=== PATIENT | female | born 1990 | race Caucasian/White ===

== ENCOUNTER → 2017-09-07 19:02 | Outpatient (CLI) | payer OTHER, SELFPAY ==
[2017-09-07 22:43] LABS: Chlamydia Trachomatis by PCR Negative (Negative); Neisserai gonorrhoeae by PCR Negative (Negative); Probe Check PASS; Sample Adequacy Control PASS; Specimen Processing Control PASS
[2017-09-13 15:54] LABS: HPV Reflexed? NOT INDICATED
== END ==
PROVIDERS: Family Provider Physician Assistant; PCP Physician Assistant; Visit Provider Nurse Practitioner Women's Health
DX: Z12.4 Encounter for screening for malignant neoplasm of cervix (principal); Z11.3 Encounter for screening for infections with a predominantly sexual mode of transmission
CPT/HCPCS: 87491; 87591; 88175; G0145

== ENCOUNTER → 2017-10-26 15:51 | Outpatient (CLI) | payer OTHER, SELFPAY ==
[2017-10-26 19:30] LABS: Chlamydia Trachomatis by PCR Negative (Negative); Neisserai gonorrhoeae by PCR Negative (Negative); Probe Check PASS; Sample Adequacy Control PASS; Specimen Processing Control PASS
== END ==
PROVIDERS: Family Provider Physician Assistant; PCP Physician Assistant; Visit Provider Nurse Practitioner Women's Health
DX: Z11.3 Encounter for screening for infections with a predominantly sexual mode of transmission (principal); N89.8 Other specified noninflammatory disorders of vagina
CPT/HCPCS: 87070; 87077; 87205; 87491; 87591

== ENCOUNTER 2017-12-14 09:30 | Outpatient (RCR) | payer OTHER, SELFPAY | END 2017-12-21 23:59 | LOC: NS 09:30 | PROVIDERS: Family Provider Physician Assistant; PCP Physician Assistant; Visit Provider Family Medicine | DX: E66.9 Obesity, unspecified (principal); E66.3 Overweight; Z68.36 Body mass index [BMI] 36.0-36.9, adult; Z71.3 Dietary counseling and surveillance | CPT/HCPCS: 97802; 97803 ==

== ENCOUNTER 2017-12-22 10:00 | Outpatient (RCR) | payer OTHER, SELFPAY ==
--- NOTE | 2017-08-26 17:16 | HP.PTEVAL ---
Patient's Visit Information BROOKLYN LOREDO is a 26 year old F referred to Physical Therapy by JOSH Cisneros with a diagnosis of . Date of Evaluation: 08/26/17 Physical Therapist: Tayler Christian Visit Plan Frequency: 2-3x /Week Duration: 4-6 Weeks Plan: FURTHER ASSESSMENT WITH PHYSICIAN ORDER FOR PT. POSTURE CORRECTION/STRENGTHENING, INSTRUCTION IN APPROPRIATE BODY MECHANICS AND ACTIVITY MODIFICATIONS. THAIS UE ROM, STRETCHING AND STRENGTHENING. HEP INSTRUCTION. CONSIDER AQUATIC THERAPY. - Subjective Subjective: Work/Leisure: WORKS AT THE [employer] AT THE [facility] ABOUT 40 HOURS A WEEK. STANDING ALL DAY. 20 - 30 MIN TRAVEL TIME TO AND FROM WORK. OCCASSIONALLY DOES SOME BENDING, LIFTING AND TWISITNG. SOMETIMES DRIVES A BIG SHUTTLE. REPORTS SHE HAS NOT BEEN LIFTING AT WORK THIS WEEK. Disability: NO. Present symptoms: CONSTANT NECK PAIN, THAIS SHOULDER PAIN AND DOWN BACK A LITTLE BIT. INTERMITTENT THAIS UE PAIN, NUMBESS AND TINGLING TO FINGERS. INTERMITTENT LOW BACK PAIN. INTERMITTENT THAIS LE PAIN, NUMBNESS AND TINLGING TO TOES. Present since: HIGH SCHOOL. Pain Scale: Worst - 8/10 Least - 3/10 IN NECK, SHOULDERS AND UPPER BACK. Commenced as a result of: DANCING AND BREAST GROWTH. Symptoms at onset: ARMS AND LEGS GOING NUMB. Worse: ANYTHING PHYSICAL, EXERCISING, TAKING WALK, LIFTING, CLEANING, SWIMMING, YOGA, LYING DOWN, LOOKING DOWN, RIDING A BIKE. Better: HEAT, SITTING UP AND NOT MOVING, IBUPROFEN, MUSCLE RELAXER, TORODOL SHOT. Disturbed sleep: YES. Previous history/Previous treatment: PHYSICAL THERAPY 2010 IN [facility] - HELPED A LITTLE BIT BUT IT WAS ALSO THE SAME TIME SHE STOPPED DANCING. NO CHIROPRACTOR. NO CLARISSE'S. NO NECK OR BACK SURGERY. Dizziness: OCCASSIONALLY. Tinnitis: NO. Nausea: NO. Difficulty Swollowing: NO. Gait: NO ASSISTIVE DEVICES. NO FALLS. Accidents: NO. Unexplained weight loss: NO. Imaging: NO SPINE X-RAYS. PATIENT STATES SHE HAD A LOT OF TESTS DONE IN 2005 WHEN SHE PASSED OUT DURING A SPINAL TAP FOR PRESSURE ON THE BRAIN RESULTING PRESSURE ON HER OPTIC NERVES AND SHE PASSED OUT AND HAD A SEIZURE. NO SEIZURES SINCE AND NOT ON SWIZURE MEDICATION. PMH/Recent major surgery: ALLERGIES, ANXIETY AND DEPRESSION. HAS BEEN ON MEDICINE FOR ANXIETY AND DEPRESSION SINCE ABOUT AGE 16. OTHER: PATIENT REPORTS THE DOCTOR GAVE HER AN ORDER FOR A NECK X-RAY AND TOLD HER TO HAVE THE X-RAY IF PHYSICAL THERAPY DOESN'T HELP. PATIENT REPORTS THAT ALL OF A SUDDEN SATUREDAY ABOUT 6 AM SHE WOKE UP AND COULDN'T MOVE HER NECK OR ARMS. SHE STAYED IN BED ALL DAY AND IT DIDN'T GET BETTER. SHE STATES IT HAPPENED FOR NO APPARENT REASON AND SHE JUST WOKE UP THAT WAY ON TUESDAY. SHE CALLED OFF WORK TUESDAY AND [facility]. STATES HER MOM HAD TO HELP HER OUT OF BED TO GO TO THE [facility]. REPORTS THEY TOLD HER TO GET A NECK BRACE AND USE MH ON HER NECK AND SEE HER DOCTOR TUESDAY. SHE WENT TO WORK TUESDAY THEN SAW HER NURSE PRACTITIONER Ivania JOSEPH AFTER WORK. SHE REPORTS SHE TOLD HER NOT TO WEAR THE NECK BRACE AND TO TO TRY PT. SHE ALSO GAVE HER A TORODOL SHOT AND MUSCLE RELAXER PRESCRIPTION. PATIENT REPORTS THAT SHE IS SLOWLY GETTING BETTER AND THE TORODOL SHOT HELPED A LOT. - Objective I PROCEEDED CAREFULLY WITH ALL TESTING TODAY AND PATIENT AGREED TO ALL TESTING. Sitting Posture/Standing Posture: POOR. Active Correction of posture: BETTER. Other Observations: INDEP GAIT AND TRANSFERS. Motor deficit: THAIS UE STRENGTH AT LEAST 4/5 WITH MMT'ING BUT PATIENT C/O ARMS GETTING A WEAK FEELING WITH TESTING. Sensory deficit: THAIS UE LIGHT TOUCH SENSATION IS INTACT AND SYMMETRICAL. ROM deficit: THAIS UE ROM WFL. Reflexes: THAIS UE DTR'S 2/2. Dural Signs: NT. Cervical Mvmt Loss: TESTING WITHIN PAINFREE ROM ONLY. Flex: MOD. Pro: MOD. Ext: MOD. Ret: MOD. RSB: MOD. LSB: MOD. R Rot: MOD. L Rot: MOD. PATIENT REPORTS THAT THIS NECK MVMT IS A LOT BETTER THAN IT WAS AND SHE CAN AVOID INCREASING THE PAIN IF SHE DOESN'T GO TOO FAR. Postural strength: FAIR. OTHER: THERE IS A BUMP OF WHAT APPEARS TO BE SWELLING ON THE LOWER CERVICAL SPINE. PATIENT REPORTS IN IS SOMETIMES BIGGER. - Goals Goal 1:: DECREASE C/O NECK, UPPER BACK AND THAIS UE SX'S. Goal Time Frame: 4-6 Weeks Goal 2:: IMPROVE LIFTING, EXERCISE, READING, SLEEP, WORK, DRIVING AND OTHER RECREATIONAL FUNCTION Goal Time Frame: 4-6 Weeks Goal 3:: INSTRUCT IN PROPHYLAXIS Goal Time Frame: 4-6 Weeks - Rehabilitation Potential Physical Therapy Diagnosis: DECREASED NECK PAINFREE ROM ALL PLANES. DECREASED PAINFREE THAIS UE STRENGTH. Rehabilitation Potential: Fair - Anticipated Interventions Patient/Client Instruction: Educate patient on: Condition, Plan of Care, Risk Factors, Benefits of Fitness Program For the Purpose of:: To improve self management Therapeutic Exercise to Include: Strength training, Body mechanics, Postural training, In an aquatic setting, Active ROM, Scapular Strength/Stabilization For the Purpose of:: To decrease pain, To decrease swelling/inflammation, To increase ROM, To improve muscle performance and motor function, To increase tolerance to activity/condition/position, To improve ability of physical actions for home/community/work/leisure Thank you for the opportunity to evaluate your patient. For Medicare and Medicare HMO plans, please review the plan of care and approve it. It will need to be FAXED BACK to us at [phone] for Medicare purposes. Please let me know if there are questions or concerns regarding this plan of care. Physician Signature: Date:
--- NOTE | 2017-10-05 13:40 | HP.PTREVAL_ITS ---
JOSH Cisneros, It has been my pleasure to treat BROOKLYN LOREDO over the last 10 visits for NECK PAIN. Please see the progress note below for an update on the physical therapy plan of care! Subjective: I CAN MOVE A LOT EASIER JUST GOING OUT THINGS DAY TO DAY BUT IT CAN STILL AT TIMES BE PRETTY PAINFULL BUT NOT NEAR OFTEN IT USE TO BE. PATIENT REPORTS SHE THINKS STRESS IS A BIG FACTOR WITH CHANGING JOBS AND ANTICIPATION OF GOING BACK TO SCHOOL. SHE REPORTS HER PAIN COMES AND GOES NOW. UP TO 5/10 PAIN AT ITS WORST. PATIENT REPORTS SHE IS GOING TO CONSIDER BREAST REDUCTION. PATIENT REPORTS SHE FEELS LIKE SHE IS GETTING THE HANG OF THE EX'S BETTER BUT NEEDS MORE HELP. PATIENT REPORTS SHE HAS ACCESS TO [employer] AND [employer] AND THEY BOTH HAVE POOLS. SHE REPORTS SHE CAN START SOME INDEP WATER EX IN THE NEXT WEEK OR SO. Objective/Function: IMPROVING. PATIENT IS REPORTING INCREASED FUNCTION AND DECREASED PAIN. UPON EXAM, SHE IS MUCH MORE TOLERANT OF TESTING. THAIS UE ROM IS WFL WITH MINIMAL GUARDING. THAIS UE STRENGTH IS 5/5 WITH MMT'ING. CERVICAL MVMT LOSS: FLEX - NIL, PRO - NIL, EXT - MIN, RET - MIN, THAIS SB - NIL, THAIS ROT - MIN. MUCH IMPROVED POSTURE CONTROL IN CLINIC WITH PATIENT CORRECTING WITHOUT CUEING. WOULD RECOMMEND CONTINUED PT PER ORIG POC WORKING TOWARD SAME GOALS WITH PROGRESSION TOLERATED AND TAPERING OFF OF THERAPY. Plan Plan: CONT AQUATIC THERAPY DECREASING TO 2X'S A WEEK X 2 WEEKS THEN 1X/WEEK X 4 WEEKS WHILE PATIENT TRANSITIONS TO INDEP EX AT POOL OF HER CHOICE. Goals Goal 1:: DECREASE C/O NECK, UPPER BACK AND THAIS UE SX'S. Goal Time Frame: 4-6 Weeks Goal Progress: Progressing Goal 2:: IMPROVE LIFTING, EXERCISE, READING, SLEEP, WORK, DRIVING AND OTHER RECREATIONAL FUNCTION Goal Time Frame: 4-6 Weeks Goal Progress: Progressing Goal 3:: INSTRUCT IN PROPHYLAXIS Goal Time Frame: 4-6 Weeks Goal Progress: Progressing Anticipated Interventions Patient/Client Instruction: Educate patient on: Condition, Plan of Care, Risk Factors, Benefits of Fitness Program For the Purpose of:: To improve self management Therapeutic Exercise to Include: Strength training, Body mechanics, Postural training, In an aquatic setting, Active ROM, Scapular Strength/Stabilization For the Purpose of:: To decrease pain, To decrease swelling/inflammation, To increase ROM, To improve muscle performance and motor function, To increase tolerance to activity/condition/position, To improve ability of physical actions for home/community/work/leisure Please do not hesitate to contact me at [phone] by phone or Fax: if you have questions or concerns regarding this new plan of care! Sincerely, Tayler Grover
--- NOTE | 2017-12-28 11:33 | HP.PTDCSUM_ITS ---
HP - PT D/C Summary It has been my pleasure to treat BROOKLYN LOREDO under orders from JOSH Cisneros, for the diagnosis of NECK PAIN for a total of 22 visit(s). Discharge Date: 12/28/17 Please see the following information for a summary of their discharge status. - Subjective Subjective: PATIENT REPORTS SHE IS COMING 2-3 TIMES A WEEK ON [facility] HER POOL PROGRAM THROUGHT THE WHY WEIGHT PROGRAM. SHE STATES IT IS GOING GOOD. PATIENT REPORTS SHE HASN'T HAD MUCH OF ANY PAIN IN HER SPINE FOR ABOUT A WEEK NOW BECAUSE SHE MODIFIES HER ACTIVITIES AT THE FIRST SIGN OF PAIN. BREAST REDUCTION SURGERY PENDING January. SHE IS ALSO EXERCISING INDEP'LY ON LAND NOW X ABOUT 8 SESSIONS WITH PROGRAM SET UP WITH [employer]. PATIENT REPORTS HER ABILITY TO DO EVERY DAY TASKS LIKE CLEANING, BENDING AND BEING ACTIVE IN EXERCISE HAS IMPROVED BEYOND HER PRIOR LEVEL OF F UNCTION. SHE REPORTS SHE HAS NOT BEEN ABLE TO BE THIS ACTIVE THIS PAINFREE FOR A FEW YEARS. SHE REPORTS SHE IS MOTIVATED TO GET EVEN STRONGER. - Pain NECK Pain Intensity (Out of 10): 0 UPPER BACK Pain Intensity (Out of 10): 0 Lumbar Spine Pain Intensity (Out of 10): 0 - Overall Improvement % Improvement: 90 - Objective Objective/Function: ALL GOALS MET. PATIENT IS REPORTING INCREASED FUNCTION AND VERY MANAGEABLE OR ALMOST NO PAIN NOW. UPON EXAM, SHE DENIES PAIN WITH ALL TESTING TODAY. THAIS UE AND LE ROM IS WFL WITHOUT GUARDING. THAIS UE AND LE STRENGTH IS 5/5 WITH MMT'ING. CERVICAL MVMT LOSS: FLEX - NIL, PRO - NIL, EXT - NIL, RET - NIL, THAIS SB - NIL, THAIS ROT - NIL. LUMBAR ROM AND THORACIC ROM IS FULL AND PAINFREE WITH TESTING TODAY. - Goals Goal 1:: DECREASE C/O NECK, UPPER BACK AND THAIS UE SX'S. Goal Progress: Goal Met Goal 2:: IMPROVE LIFTING, EXERCISE, READING, SLEEP, WORK, DRIVING AND OTHER RECREATIONAL FUNCTION Goal Progress: Goal Met Goal 3:: INSTRUCT IN PROPHYLAXIS Goal Progress: Goal Met - Plan Plan: D/C TO INDEP EX PROGRAMS IN THE POOL AND ON LAND. PATIENT IS AGREEABLE. - D/C Information If there are questions or concerns regarding this patient's physical therapy, please feel free to call me at [phone]. Thank you for the referral of this patient. Sincerely, Tayler Grover
== END 2017-12-22 19:00 | disposition home or self-care (01) ==
LOC: PT 10:00
PROVIDERS: Family Provider Physician Assistant; PCP Physician Assistant; Visit Provider Physician Assistant
DX: M54.2 Cervicalgia (principal)
CPT/HCPCS: 97113; 97162; 97164; 97530

== ENCOUNTER 2018-01-03 11:24 | Outpatient (RCR) | payer OTHER, SELFPAY | END 2018-01-20 23:59 | LOC: NS 11:24 | PROVIDERS: Family Provider Physician Assistant; PCP Physician Assistant; Visit Provider Family Medicine | DX: E66.9 Obesity, unspecified (principal); E66.3 Overweight; Z68.36 Body mass index [BMI] 36.0-36.9, adult; Z71.3 Dietary counseling and surveillance | CPT/HCPCS: 97803 ==

== ENCOUNTER 2018-01-24 05:55 | Day surgery (SDC) | payer OTHER, SELFPAY ==
[2018-01-18 11:28] VITALS: BMI 35.3
[2018-01-24] VITALS (11 sets, daily range): BP systolic 109–135; BP diastolic 57–98; PULSE 101–122; RESP 14–16; TEMP 36.3–37.1; O2SAT 93–100; BMI 35.2
--- NOTE | 2018-01-24 | BR_PTH ---
PATIENT: BROOKLYN LOREDO LOC: [facility] U#:[id number] AGE/SX: 27/F ROOM: RE01/24/[address]: Dr. Bob Ivan MD : 1990 BED: DIS: 01/25/2018 SPEC #: [id number] RECD: 01/24/18 14:02 STATUS: TAMIKA YANCY #: [id number] TI: 01/24/18 00:[address]: Bob Ivan DEPT: SURGICAL PATHOLOGY RECD BY: Eddi Mojica ENTERED: 01/24/18 14:02 SP TYPE: MAMOPLASTY OTHR DR: JOSH Cisneros Tissues: A - Right breast, NOS B - Left breast, NOS Procedures: Surgery Specimen Level IV HEADER OPERATION: Bilateral breast reduction, mammoplasty PRE-OP DIAGNOSIS: Breast hypertrophy, chronic cervical pain, chronic thoracic back pain, pain in shoulder, intertrigo, family history breast cancer TISSUE SUBMITTED: A - Right breast tissue, B - Left breast tissue MICROSCOPIC DIAGNOSIS A. Right breast tissue, breast reduction mammoplasty: Benign breast tissue (1282 gm). Skin, no pathologic diagnosis. B. Left breast tissue, breast reduction mammoplasty: Benign breast tissue (1157 gm). Skin, no pathologic diagnosis. CESILIA:deja 01/26/18 MICROSCOPIC DESCRIPTION Slides are reviewed. GROSS DESCRIPTION A - Received in fixative is one container labeled with the patient's name and designated right breast tissue. The specimen consists of multiple fragments of yellow fibroadipose tissue with a few of the pieces showing lemus-white skin weighing in aggregate 1282 gm and measuring in aggregate 30 x 30 x 9 cm. Sections reveal mostly lemus-yellow adipose cut surfaces mixed with focal lemus-white fibrous areas. Hat Trimmer sections are submitted in six cassettes. Cassette 1 also contains the skin piece. B - Received in fixative is one container labeled with the patient's name and designated left breast tissue. The specimen consists of multiple fragments of yellow fibroadipose tissue with a few of the pieces showing lemus-white skin weighing in aggregate 1157 gm and measuring in aggregate 30 x 24 x 9 cm. Sections reveal mostly lemus-yellow adipose cut surfaces mixed with focal lemus-white fibrous areas. Hat Trimmer sections are submitted in six cassettes. Cassette 1 also contains the skin piece. / CESILIA:deja 01/25/18 TC:5 CPT: 92660 x2
[2018-01-24 06:38] LABS: Internal QC Validated? YES +Cl - CLEAR BKGD; Pregnancy, Urine Negative Negative
[2018-01-24] MEDS: Cefazolin 2 GM in 0.9% Normal Saline 100 ML IV (07:59)
[2018-01-24] MEDS: Methylene Blue 1% 100 MG/10 ML VIAL (08:30)
--- NOTE | 2018-01-24 14:27 | PCM.IMDPSTOP ---
Immediate Post-Op Note Date of Procedure: 01/24/18 Primary Surgeon/Physician: Bob Ivan spring production supervisor: Radha Thacker. Pre-Operative Diagnosis: 1. Bilateral macromastia. 2. Neck pain. 3. Thoracic back pain. 4. Bilateral shoulder pain from shoulder grooving from the weight of the breasts on her bra straps. 5. Inframammary intertrigo. 6. Family history of breast cancer. Post-Operative Diagnosis: Same. Surgery/Procedure Performed:: Bilateral breast reduction mammaplasty. Description of Surgical Findings:: 27 year old woman presents with complaints of bilateral macromastia as well as associated painful symptomatology of neck pain, thoracic back pain, bilateral shoulder pain from shoulder grooving from the weight of her breasts on her bra straps, and inframammary intertrigo for which she uses powder for relief. She denies any trauma to her breasts. Denies any nipple discharge. She has not seen a chiropractor for her back pain. She has undergone Physical Therapy treatments without much relief. She has not had a mammogram. She does have a family history of breast cancer. We have received medical approval for the breast reduction surgery. Today the patient underwent bilateral breast reduction mammaplasty. Tissue removed from the right breast - 1252 grams. Tissue removed from the left breast - 1120 grams. IV Fluids - 3300 ml. Urine Output - 250 ml. I used Hernan absorbable hemostat, (I used 4 vials, 2 in each breast). Reference Number - [id number]. Lot Number - [id number]. Expiration - September 17, 2022. Estimated Blood Loss: 150 ml. Specimen's removed: 1. Right breast tissue to Pathology. 2. Left breast tissue to Pathology. Drains: Bora x2. Type of Anesthesia:: General - Admit VTE Documentation VTE Present on Admission: No VTE Mechan Device Prophylaxis: SCD's VTE Pharm Prophylaxis ordered?: Yes
--- NOTE | 2018-01-24 14:32 | OP.PN_ITS ---
Immediate Post-Op Note Date of Procedure: 01/24/18 Primary Surgeon/Physician: Bob Ivan toe stripper: Radha Thacker. Pre-Operative Diagnosis: 1. Bilateral macromastia. 2. Neck pain. 3. Thoracic back pain. 4. Bilateral shoulder pain from shoulder grooving from the weight of the breasts on her bra straps. 5. Inframammary intertrigo. 6. Family history of breast cancer. Post-Operative Diagnosis: Same. Surgery/Procedure Performed:: Bilateral breast reduction mammaplasty. Description of Surgical Findings:: 27 year old woman presents with complaints of bilateral macromastia as well as associated painful symptomatology of neck pain, thoracic back pain, bilateral shoulder pain from shoulder grooving from the weight of her breasts on her bra straps, and inframammary intertrigo for which she uses powder for relief. She denies any trauma to her breasts. Denies any nipple discharge. She has not seen a chiropractor for her back pain. She has undergone Physical Therapy treatments without much relief. She has not had a mammogram. She does have a family history of breast cancer. We have received medical approval for the breast reduction surgery. Today the patient underwent bilateral breast reduction mammaplasty. Tissue removed from the right breast - 1252 grams. Tissue removed from the left breast - 1120 grams. IV Fluids - 3300 ml. Urine Output - 250 ml. I used Hernan absorbable hemostat, (I used 4 vials, 2 in each breast). Reference Number - [id number]. Lot Number - [id number]. Expiration - September 17, 2022. Estimated Blood Loss: 150 ml. Specimen's removed: 1. Right breast tissue to Pathology. 2. Left breast tissue to Pathology. Drains: Bora x2. Type of Anesthesia:: General - Admit VTE Documentation VTE Present on Admission: No VTE Mechan Device Prophylaxis: SCD's VTE Pharm Prophylaxis ordered?: Yes
[2018-01-24] MEDS: oxyCODONE 5 MG Tablet 10 MG PO (18:44)
[2018-01-24] MEDS: Cefazolin 1 GM/50 ML BAG IV (21:27)
[2018-01-24] MEDS: Docusate Sodium 100 MG Capsule PO (21:27)
[2018-01-25] MEDS: Lactated Ringers 1,000 ML 60 ML IV (00:37)
[2018-01-25 03:01] VITALS: BP 112/66; PULSE 99; RESP 16; TEMP 36.9; O2SAT 95
[2018-01-25] MEDS: Cefazolin 1 GM/50 ML BAG IV (05:47)
[2018-01-25] MEDS: oxyCODONE 5 MG Tablet 10 MG PO ×2 (05:47→14:40)
[2018-01-25] MEDS: Enoxaparin 40 MG/0.4 ML Syringe SC (05:47)
[2018-01-25 06:04] LABS: Hematocrit 34.4 % (37-47); Hemoglobin 10.9 g/dl (12.0-15.0); Mean Corp Hgb Conc 31.7 g/gl (32-36); Mean Corpuscular Hgb 29.4 pg (27.0-32.0); Mean Corpuscular Volume 92.7 fL (81-99); Mean Platelet Vol. 9.8 fl (6.2-12.0); Platelet Count 288 K/mm3 (150-450); RBC Distribution Width CV 13.1 % (11.6-14.6); RBC Distribution Width SD 42.8 fl (35.1-43.9); Red Blood Count 3.71 M/mm3 (4.2-5.4); White Blood Count 10.9 K/mm3 (4.4-11.0)
[2018-01-25 06:11] LABS: Scan Indicated on CBC? Y/N NO
[2018-01-25 08:51] VITALS: BP 117/67; PULSE 96; RESP 18; TEMP 36.9; O2SAT 95
[2018-01-25] MEDS: Docusate Sodium 100 MG Capsule PO (08:53)
--- NOTE | 2018-01-25 14:06 | OP.PCM_ITS ---
Report of Operation Date of Procedure: 01/24/18 Pre-Operative Diagnosis: 1. Bilateral macromastia. 2. Neck pain. 3. T horacic back pain. 4. Bilateral shoulder pain from shoulder grooving from the weight of the breasts on her bra straps. 5. Inframammary intertrigo. 6. Family history of breast cancer. Post-Operative Diagnosis: Same. Surgery/Procedure Performed:: Bilateral breast reduction mammaplasty. Description of Surgical Findings:: 27 year old woman presents with complaints of bilateral macromastia as well as associated painful symptomatology of neck pain, thoracic back pain, bilateral shoulder pain from shoulder grooving from the weight of her breasts on her bra straps, and inframammary intertrigo for which she uses powder for relief. She denies any trauma to her breasts. Denies any nipple discharge. She has not seen a chiropractor for her back pain. She has undergone Physical Therapy treatments without much relief. She has not had a mammogram. She does have a family history of breast cancer. We have received medical approval for the breast reduction surgery. Patient was informed of the risks and complications of the procedure including alternatives to surgery. These were discussed with the patient personally. Patient voices understanding and wishes to proceed. Some of the risks and complications were included in a form from the [employer]. Tissue removed from the right breast - 1252 grams. Tissue removed from the left breast - 1120 grams. IV Fluids - 3300 ml. Urine Output - 250 ml. I used Hernan absorbable hemostat, (I used 4 vials, 2 in each breast). Reference Number - [id number]. Lot Number - [id number]. Expiration - September 17, 2022. social scientist: Radha Thacker. Type of Anesthesia:: General Specimen's removed: 1. Right breast tissue to Pathology. 2. Left breast tissue to Pathology. Drains: Bora x2. Estimated Blood Loss (mL): 150 ml. Fluids Replaced: 3550 ml (IV Fluids 3300 ml, Urine Output 250 ml). Description of Procedure: The patient was taken to the operating room and in the sitting position, preoperative markings were made. The sternum midline was marked down to the umbilicus. The inframammary folds were marked bilaterally. The midclavicular line was then marked down to the nipple, then from the nipple to the inframammary fold. The inframammary fold was then superimposed on the midclavicular line and I made a point 1 cm below that to be the new position of the nipple-areolar complex. 7 cm lines were then drawn divergent from that point to encompass the nipple-areolar complex. The distance between the divergent lines was 9 cm. The patient was then placed in the supine position and placed under general anesthesia and her breasts were prepped and draped in usual fashion. SCDs were placed for DVT prophylaxis. Perioperative antibiotics were given intravenously. A Hendrickson catheter was also placed. I then tattooed the preoperative markings with methylene blue and 25-gauge needle. I also tattooed the 12 o'clock position of the nipple-areolar complex to help with positioning of the nipple-areolar complex when it is brought through the keyhole incision at the end of the procedure to minimize kinking and twisting of the central breast mound pedicle. I then em straight lines down from the lines drawn divergent around the nipple-areolar complex down to the inframammary fold. The width of the pedicle is 9 cm. I then used a 42 mm circular template for a new size of the nipple-areolar complex. The central markings were infiltrated with Xylocaine and epinephrine. The central skin was then deepithelialized. I started on the right side first and then went to the left side. I then mobilized medial and lateral breast flaps at the level of Nelly's fascia down to within a centimeter of the chest wall. This was met in the midline of the breast with dissection at the level of Nelly's fascia down to within a centimeter of the chest wall. Once the central breast mound pedicle was from the skin envelope, the reduction was then begun. Most of the tissue was removed from the superior aspect of the breast and the lateral aspect of the breast. I then sutured the leading edge of the medial and lateral breast flaps to the midline of the inframammary fold. The vertical incision was approximated using surgical clips. The excess tissue from the medial and lateral breast flaps were excised and the horizontal incision was approximated using surgical clips. The patient was then placed in a sitting position. Using a vertical limb length of 5 cm, I em the new position of the new nipple-areolar complexes on both breasts. They were in good position on the central aspect of the breast mound. Good symmetry was noted between the left breast and the right breast. The patient was then placed back in the supine position and the surgical clips were removed. The breast wounds were then irrigated with saline. Hemostasis was obtained using electrocautery. The tissue removed from the left breast was 1120 grams. The tissue removed from the right breast was 1252 grams. The tissue that was removed from the breasts was sent to Pathology for analysis to rule out carcinoma. After hemostasis was obtained using electrocautery, I then sprayed Hernan absorbable hemostat into both breast wounds. I used 2 vials for each side. I then placed a size 15 Bora drain into each breast wound to be brought through the lateral aspect of the horizontal incision. I then closed the breast wounds by first approximating the leading edge of the medial and lateral breast flaps to the midline inframammary fold with 2-0 Vicryl suture. The deep dermis and subcutaneous tissue of the vertical incision and the horizontal incisions were approximated using 3-0 Monocryl interrupted sutures. The horizontal incision was then approximated using 4-0 V-Loc unidirectional barbed running subcuticular suture. I also placed a few 4-0 Prolene vertical mattress interrupted sutures at the level of the Tzone. The vertical incision was then closed on the skin with 4-0 Prolene interrupted sutures. With a vertical limb length of 5 cm, I em a circular incision where the new nipple-areolar complex would be brought through the keyhole incision. Incisions were made and the nipple areolar complex was brought through the keyhole incision. The 12 o'clock position of the nipple-areolar complex was lined up with the 12 o'clock position of the breast skin. The nipple-areolar complex was secured to the breast skin using 3-0 Monocryl interrupted sutures for deep dermis and subcutaneous tissue. The skin was approximated using 4-0 Prolene simple interrupted sutures. This was then covered with Histoacryl skin tissue adhesive. I sutured the drain to the skin using 3-0 nylon suture. At the end of procedure, the breasts were soft with no evidence of vascular compromise. No evidence of hematomas were noted. The nipples were viable. I then dressed the breasts with a Kerlix gauze and a surgical bra. The patient tolerated the procedure well and will be sent to the recovery room in satisfactory condition. She will be admitted for surgical observation overnight stay. She will go home tomorrow once she is tolerating oral pain medication. I will remove the drains in a few days. She will be maintained on antibiotics until the drains are removed. She will keep her head elevated during the initial postoperative period. She will be maintained on a lifting restriction and keep her head elevated during the initial postoperative period. Postoperatively, she may get a compression sports bra as well. She will have the Hendrickson removed in the morning. She will be sent home on antibiotics and pain medicine for a few days. Sutures will be removed in 1-2 weeks. Grafts/Implants Used: None. - Complications None. - Admit VTE Documentation VTE Present on Admission: No VTE Mechan Device Prophylaxis: SCD's VTE Pharm Prophylaxis ordered?: Yes Code Visit Surgery Charges CPT - 94740 ICD-10 - N62, M54.2, M54.6, M25.519, L30.4, Z80.3 [id number] ICD-10 - N62, M54.2, M54.6, M25.519, L30.4, Z80.3
--- NOTE | 2018-01-25 14:06 | PCM.PN.SRG ---
Subjective: Postop #1 Patient complains of incisional pain. She is tolerating po analgesia. - Physical Exam General: Alert, Oriented x3 HEENT: PERRLA, EOMI Oral: Moist Mucosa Neck: Supple Abdomen: Soft, Non-Distended Skin: Incision - Breast incisions are dry and intact. Breasts are soft and symmetrical. Minor bruising seen. No vascular compromise noted on the breast skin flaps. No clinical evidence of hematoma. Neurological: Cranial nerves II-XII grossly intact Psych/Mental Status: Normal Affect, Appropriate Vital Signs Temp Pulse Resp BP Pulse Ox 98.4 F 96 18 117/67 95 01/25/18 08:51 01/25/18 08:51 01/25/18 08:51 01/25/18 08:51 01/25/18 08:51 Oxygen Flow Rate (L/min) 2 Oxygen Delivery Method Room Air Weight: 192 lb 10.944 oz Body Mass Index (BMI) 35.2 Intake and Output for Last 24 Hours 01/23/18 01/24/18 01/25/18 23:59 23:59 23:59 Intake Total 3961 / 3961 2236 / 2236 Output Total 690 / 690 4385 / 4385 Balance 3271 / 3271 -2149 / -2149 Drainage 40 ml yesterday, 160 ml today. Laboratory Tests Past 24 Hrs 01/25/18 01/25/18 05:35 05:35 WBC 10.9 RBC 3.71 L Hgb 10.9 L Hct 34.4 L MCV 92.7 MCH 29.4 MCHC 31.7 L RDW 13.1 RDW Differential 42.8 Plt Count 288 MPV 9.8 Prealbumin 22.0 Medical Necessity - Tobacco Use Smoking Status: Never smoker Tobacco Use: Non-smoker Assessment/Plan All Active Problems (Last Updated 11/08/17 @ 15:18 by Vanessa León) Depression with anxiety (Acute) 1. Bilateral macromastia. 2. Neck pain. 3. Thoracic back pain. 4. Bilateral shoulder pain from shoulder grooving from the weight of the breasts on her bra straps. 5. Inframammary intertrigo. 6. Family history of breast cancer. 7. s/p bilateral breast reduction mammaplasty. Incisions are dry and intact. Breasts are soft and symmetrical. No clinical evidence of hematoma. Tolerating po analgesia. Discharge home today. Keep head elevated. No heavy lifting. Wrote script for Cefadroxil for 7 days until the drains are removed. Wrote script for Percocet for pain (50 tabs). Wrote scripts for Phenergan for nausea (30 tabs) and a refill and for Colace for constipation (60 tabs). Followup office Tuesday01/30/18.
[2018-01-25 14:38] VITALS: BP 111/65; PULSE 99; RESP 16; TEMP 36.9; O2SAT 100
--- NOTE | 2018-01-25 14:54 | PCM.DC ---
You will use the following diet at home:: No restrictions Discharge Activity: May not drive while taking narcotic pain medications., May Not Shower - until drains are removed in the office. May shower in (days): 6 - after drains removed in the office. May resume sexual activity in: 10-14 days Weight Bearing Status: Weight bearing as tolerated Lifting Restrictions: 20 lbs. Keep extremity elevated above heart level: - - elevate head. Call your doctor if your incision/area has: Continuous Slow Oozing, Sudden Increased Bleeding, Increased Pain/ Swelling, Increased Redness, Foul Smelling Discharge, Swelling at the incision site Call your doctor if you observe: Fever of 101 or Higher, Coldness, Increased Pain, Shortness of breath, Chest pain, Calf discomfort, Uncontrolled pain Suture Line Care: - - dry dressings daily. Change Dressing in (Days):: 1 - dry dressings daily. Cleanse incision/area with: - - may get incisions wet in the shower after the drains are removed in the office. Drain: Suction - angelica drain x2 to bulb suction. empty and record output daily. Allergies/Adverse Reactions: Allergies peanut Allergy (Verified 01/18/18 11:39) Itching DAIRY Adverse Reaction (Uncoded 01/18/18 11:39) Other SEVERE ABD PAIN AND ICTHINESS Medications to take at Discharge Cetirizine HCl [Zyrtec] 10 mg PO DAILY 02/12/15 hydrOXYzine pamoate capsule [Vistaril pamoate capsule] 25 mg PO PRN PRN 02/12/15 duloxetine 60 mg capsule,delayed release 90 mg PO QDAY cap 09/07/17 Omeprazole Magnesium [Prilosec Otc] 20 mg PO DAILY 01/17/18 Cefadroxil [Duricef] 500 mg PO BID #14 cap 01/25/18 Docusate Sodium [Colace] 100 mg PO BID #60 cap 01/25/18 Oxycodone HCl/Acetaminophen [Percocet 5/325] 1 - 2 tab PO 4X/DAY PRN PRN 7 Days #50 tab 01/25/18 proMETHazine tablet [Phenergan tablet] 25 mg PO 4X/DAY PRN PRN #30 tab 01/25/18 The following prescriptions were given: Oxycodone HCl/Acetaminophen [Percocet 5/325] 1 - 2 tab PO 4X/DAY PRN PRN 7 Days #50 tab PRN Reason: Pain proMETHazine tablet [Phenergan tablet] 25 mg PO 4X/DAY PRN PRN #30 tab PRN Reason: NAUSEA/VOMITING Cefadroxil [Duricef] 500 mg PO BID #14 cap Docusate Sodium [Colace] 100 mg PO BID #60 cap Primary Care Physician: Martin Agee PA [Primary Care Provider] - Test Results: Test results from this visit will be discussed in further detail at your follow-up appointment, if applicable. Please Follow Up With: Bob Ivan MD When: tuesday01/30/18. call [phone] for appt. Proposed Discharge Date: 01/25/18
--- NOTE | 2018-01-25 14:58 | DCINST_ITS ---
You will use the following diet at home:: No restrictions Discharge Activity: May not drive while taking narcotic pain medications., May Not Shower - until drains are removed in the office. May shower in (days): 6 - after drains removed in the office. May resume sexual activity in: 10-14 days Weight Bearing Status: Weight bearing as tolerated Lifting Restrictions: 20 lbs. Keep extremity elevated above heart level: - - elevate head. Call your doctor if your incision/area has: Continuous Slow Oozing, Sudden Increased Bleeding, Increased Pain/ Swelling, Increased Redness, Foul Smelling Discharge, Swelling at the incision site Call your doctor if you observe: Fever of 101 or Higher, Coldness, Increased Pain, Shortness of breath, Chest pain, Calf discomfort, Uncontrolled pain Suture Line Care: - - dry dressings daily. Change Dressing in (Days):: 1 - dry dressings daily. Cleanse incision/area with: - - may get incisions wet in the shower after the drains are removed in the office. Drain: Suction - angelica drain x2 to bulb suction. empty and record output daily. Allergies/Adverse Reactions: Allergies peanut Allergy (Verified 01/18/18 11:39) Itching DAIRY Adverse Reaction (Uncoded 01/18/18 11:39) Other SEVERE ABD PAIN AND ICTHINESS Medications to take at Discharge Cetirizine HCl [Zyrtec] 10 mg PO DAILY 02/12/15 hydrOXYzine pamoate capsule [Vistaril pamoate capsule] 25 mg PO PRN PRN 02/12/15 duloxetine 60 mg capsule,delayed release 90 mg PO QDAY cap 09/07/17 Omeprazole Magnesium [Prilosec Otc] 20 mg PO DAILY 01/17/18 Cefadroxil [Duricef] 500 mg PO BID #14 cap 01/25/18 Docusate Sodium [Colace] 100 mg PO BID #60 cap 01/25/18 Oxycodone HCl/Acetaminophen [Percocet 5/325] 1 - 2 tab PO 4X/DAY PRN PRN 7 Days #50 tab 01/25/18 proMETHazine tablet [Phenergan tablet] 25 mg PO 4X/DAY PRN PRN #30 tab 01/25/18 The following prescriptions were given: Oxycodone HCl/Acetaminophen [Percocet 5/325] 1 - 2 tab PO 4X/DAY PRN PRN 7 Days #50 tab PRN Reason: Pain proMETHazine tablet [Phenergan tablet] 25 mg PO 4X/DAY PRN PRN #30 tab PRN Reason: NAUSEA/VOMITING Cefadroxil [Duricef] 500 mg PO BID #14 cap Docusate Sodium [Colace] 100 mg PO BID #60 cap Primary Care Physician: Martin Agee PA [Primary Care Provider] - Test Results: Test results from this visit will be discussed in further detail at your follow- up appointment, if applicable. Please Follow Up With: Bob Ivan MD When: tuesday01/30/18. call [phone] for appt. Proposed Discharge Date: 01/25/18
== END 2018-01-25 16:10 | disposition home or self-care (01) ==
LOC: SDC 05:56 → AC 05:57 → MS2 11:07
PROVIDERS: Anesthesiology; Family Provider Physician Assistant; PCP Physician Assistant; Referring Provider Surgery; Visit Provider Surgery
PROC: 0H0U0ZZ Alteration of Left Breast, Open Approach (ICD-10-PCS; CPT 19318; principal; 2018-01-24 07:45)
DX: N62 Hypertrophy of breast (principal); M54.2 Cervicalgia; M54.6 Pain in thoracic spine; M25.511 Pain in right shoulder; M25.512 Pain in left shoulder; L30.4 Erythema intertrigo; K21.9 Gastro-esophageal reflux disease without esophagitis; Z80.3 Family history of malignant neoplasm of breast
CPT/HCPCS: 19318; 36415; 81025; 84134; 85027; 88305; J7120; J2405

== ENCOUNTER 2018-01-29 10:54 | Emergency (ER) | payer OTHER, SELFPAY ==
[2018-01-24 16:36] VITALS: BMI 35.2
[2018-01-29 10:54] VITALS: BP 129/81; PULSE 110; RESP 17; TEMP 36.6; O2SAT 100; BMI 35.3
--- NOTE | 2018-01-29 11:09 | ED.DCSUM_ITS ---
- ER Visit Summary Date of Service: 01/29/18 Chief Complaint: Headache History of Present Illness: The patient is a 27 F who presents with a headache. Is been ongoing for 3 days. 5 days ago she had a breast reduction done by Dr. Ivan. After her discharge from the hospital she felt well. She then developed this headache. It is a pounding diffusely throughout her head. Denies nausea or vomiting. She has had some double vision. She denies any injuries. She tried ibuprofen, aspirin and Percocet without any relief. She states that she did have a history of migraines in the past but this is not the same character. This is worse. Physical Examination: Vital signs reviewed. HEENT exam unremarkable. Heart is regular rate and rhythm without murmurs. Lungs are clear to auscultation. Abdomen is soft and nontender. Extremities reveal no edema. Skin exam normal. Neurologic exam normal. Test Results: None performed Emergency Department Course and Treatment: Patient was given dermal saline, Benadryl and Compazine. She states it was improved but not gone for jugular some Toradol and she now feels much better. Patient will be discharged. She has follow-up with her surgeon tomorrow. She will use NSAIDs at home. Treatment Plan: [] Disposition: Discharge Impression: Headache This note was generated with [employer] dictation software. It may contain incorrect words, spelling, and punctuation that were not noted in review of the chart prior to signing ED Disposition - Plan for ED Patient: Chief Complaint: Headache Referrals: Martin Agee PA [Primary Care Provider] -
[2018-01-29] MEDS: 0.9% Normal Saline 1,000 ML 999 ML IV (11:19)
[2018-01-29] MEDS: DiphenhydrAMINE 50 MG/ML Syringe 25 MG IV (11:19)
[2018-01-29] MEDS: proCHLORPERazine 10 MG/2 ML Vial IV (11:19)
[2018-01-29] MEDS: Ketorolac 30 MG/ML Syringe IV (12:30)
--- NOTE | 2018-01-29 12:55 | ED.DEP ---
ED Disposition - Plan for ED Patient: Disposition: Home or Assisted Living Chief Complaint: Headache Instructions: ED Cephalgia Unspecified Referrals: Martin Agee PA [Primary Care Provider] -
[2018-01-29 13:02] VITALS: BP 113/70; PULSE 91; RESP 16; O2SAT 98
== END 2018-01-29 13:06 | disposition home or self-care (01) ==
PROVIDERS: Emergency Provider Emergency Medicine; Family Provider Physician Assistant; PCP Physician Assistant
DX: R51 Headache (principal); F32.9 Major depressive disorder, single episode, unspecified; Z79.899 Other long term (current) drug therapy
CPT/HCPCS: 96361; 96374; 96375; 99283; J7030; A4216

== ENCOUNTER → 2018-03-01 14:41 | Outpatient (CLI) | payer OTHER, SELFPAY ==
[2018-03-01 11:11] VITALS: BMI 35.3
== END ==
PROVIDERS: Family Provider Physician Assistant; PCP Physician Assistant; Referring Provider Surgery; Visit Provider Surgery
DX: T81.89XA Other complications of procedures, not elsewhere classified, initial encounter (principal); N62 Hypertrophy of breast; Z80.3 Family history of malignant neoplasm of breast
CPT/HCPCS: 87070; 87075; 87205

== ENCOUNTER 2018-03-16 09:30 | Outpatient (RCR) | payer OTHER, SELFPAY ==
[2018-01-18 11:28] VITALS: BMI 35.3
[2018-02-17 09:05] VITALS: BMI 35.3
== END 2018-03-23 23:59 ==
LOC: NS 09:30
PROVIDERS: Family Provider Physician Assistant; PCP Physician Assistant; Visit Provider Family Medicine
DX: E66.9 Obesity, unspecified (principal); E66.3 Overweight; Z68.36 Body mass index [BMI] 36.0-36.9, adult; Z71.3 Dietary counseling and surveillance
CPT/HCPCS: 97803

== ENCOUNTER 2018-03-30 10:27 | Outpatient (RCR) | payer OTHER, SELFPAY ==
[2018-03-22 11:48] VITALS: BMI 35.3
== END 2018-04-20 23:59 ==
LOC: NS 10:27
PROVIDERS: Family Provider Physician Assistant; PCP Physician Assistant; Visit Provider Family Medicine
DX: E66.9 Obesity, unspecified (principal); E66.3 Overweight; Z68.36 Body mass index [BMI] 36.0-36.9, adult; Z71.3 Dietary counseling and surveillance
CPT/HCPCS: 97803

== ENCOUNTER 2018-05-15 13:00 | Outpatient (RCR) | payer OTHER, SELFPAY ==
[2018-04-05 11:30] VITALS: BMI 35.3
== END 2018-05-21 23:59 ==
LOC: NS 13:00
PROVIDERS: Family Provider Physician Assistant; PCP Physician Assistant; Visit Provider Family Medicine
DX: E66.9 Obesity, unspecified (principal); E66.3 Overweight; Z68.36 Body mass index [BMI] 36.0-36.9, adult; Z71.3 Dietary counseling and surveillance
CPT/HCPCS: 97803

== ENCOUNTER 2018-06-13 11:00 | Outpatient (RCR) | payer OTHER, SELFPAY ==
[2018-04-05 11:30] VITALS: BMI 35.3
== END 2018-06-13 23:59 | disposition home or self-care (01) ==
LOC: NS 11:00
PROVIDERS: Family Provider Physician Assistant; PCP Physician Assistant; Visit Provider Family Medicine
DX: E66.9 Obesity, unspecified (principal); E66.3 Overweight; Z68.36 Body mass index [BMI] 36.0-36.9, adult; Z71.3 Dietary counseling and surveillance
CPT/HCPCS: 97803

== ENCOUNTER → 2018-09-12 17:11 | Outpatient (CLI) | payer OTHER, SELFPAY ==
[2018-09-12 13:08] VITALS: BMI 35.3
== END ==
PROVIDERS: Family Provider Physician Assistant; PCP Physician Assistant; Referring Provider Nurse Practitioner Women's Health; Visit Provider Nurse Practitioner Women's Health
DX: N94.9 Unspecified condition associated with female genital organs and menstrual cycle (principal)
CPT/HCPCS: 87070; 87205

== ENCOUNTER → 2018-12-04 14:27 | Outpatient (CLI) | payer BC, SELFPAY ==
[2018-12-04 15:50] VITALS: BMI 35.3
== END ==
LOC: LABSPEC 12-05 14:46
PROVIDERS: Family Provider Physician Assistant; PCP Physician Assistant; Referring Provider Physician Assistant; Visit Provider Physician Assistant
DX: J02.9 Acute pharyngitis, unspecified (principal)
CPT/HCPCS: 87070

== ENCOUNTER → 2019-08-20 16:36 | Outpatient (CLI) | payer BC, SELFPAY ==
[2018-12-04 15:50] VITALS: BMI 35.3
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
== END ==
PROVIDERS: PCP Physician Assistant; Referring Provider Physician Assistant; Visit Provider Physician Assistant
DX: M54.2 Cervicalgia (principal)
CPT/HCPCS: 72040

== ENCOUNTER → 2019-11-22 16:43 | Outpatient (CLI) | payer BC, SELFPAY ==
[2019-11-22 15:11] VITALS: BMI 35.3
[2019-11-27 03:06] LABS: Chlamydia By Nucleic Acid AMP Negative (Negative)
[2019-11-27 08:00] LABS: Gonococcus By Nucleic Acid AMP Negative (Negative)
== END ==
PROVIDERS: PCP Physician Assistant; Referring Provider Nurse Practitioner Women's Health; Visit Provider Nurse Practitioner Women's Health
DX: Z01.411 Encounter for gynecological examination (general) (routine) with abnormal findings (principal); N89.8 Other specified noninflammatory disorders of vagina
CPT/HCPCS: 87070; 87205; 87491; 87591

== ENCOUNTER 2020-05-28 15:48 | Outpatient (RCR) | payer BC, SELFPAY ==
[2019-11-22 15:11] VITALS: BMI 35.3
== END 2020-07-29 23:59 ==
LOC: IMMUN 15:48
PROVIDERS: PCP Family Medicine; Referring Provider Family Medicine; Visit Provider Family Medicine
DX: Z23 Encounter for immunization (principal)
CPT/HCPCS: 0001A; 0002A; 91300

== ENCOUNTER → 2020-07-03 | Outpatient (CLI) | payer OTHER, SELFPAY ==
[2020-07-03 10:51] VITALS: BMI 35.3
[2020-07-05 03:07] LABS: Chlamydia By Nucleic Acid AMP Negative (Negative)
[2020-07-05 09:32] LABS: Gonococcus By Nucleic Acid AMP Negative (Negative)
== END | disposition home or self-care (01) ==
LOC: LABSPEC 12:18
PROVIDERS: PCP Family Medicine; Referring Provider Nurse Practitioner Women's Health; Visit Provider Nurse Practitioner Women's Health
DX: Z11.3 Encounter for screening for infections with a predominantly sexual mode of transmission (principal); N89.8 Other specified noninflammatory disorders of vagina
CPT/HCPCS: 87070; 87205; 87491; 87591